=== PATIENT | female | born 1975 ===

== ENCOUNTER 2018-08-14 19:57 | Emergency (ER) | payer OTHER ==
[~2018-08-14] VITALS: Ht 167.6 cm; Wt 70.3 kg
[~2018-08-14 19:57] MED LIST: ACIDOPHILUS1 EACH PO; TOPROL XL25 MG; ZANTAC150 MG PO; ZOFRAN8 MG PO
[2018-08-14] MEDS ORDERED: SYNTHROID150 MCG PO (20:09)
[2018-08-14] MEDS ORDERED: CALCIUM500 M1 PO (20:09)
[2018-08-15] MEDS ORDERED: CALCIUM 500 +1 EACH PO (13:02)
[2018-08-15] MEDS ORDERED: BACTRIM DS TAB1 EACH PO (13:07)
[2018-08-15] MEDS ORDERED: KETO10TA2 PO (13:07)
== END 2018-08-15 14:23 ==
LOC: ER 19:57
DX: E83.51 Hypocalcemia (principal)

== ENCOUNTER 2018-09-10 22:33 | Emergency (ER) | payer OTHER ==
[~2018-09-10] VITALS: Ht 167.6 cm; Wt 70.3 kg
[~2018-09-10 22:33] MED LIST changes: +BACTRIM DS TAB1 EACH PO; +CALCIUM 500 +1 EACH PO; +CALCIUM500 M1 PO; +KETO10TA2 PO; +SYNTHROID150 MCG PO
[2018-09-11] MEDS ORDERED: TOPROL XL25 MG PO (08:26)
== END 2018-09-11 08:37 | disposition home or self-care (01) ==
LOC: ER 22:33
DX: R07.89 Other chest pain (principal); I10 Essential (primary) hypertension

== ENCOUNTER 2019-03-10 14:43 | Emergency (ER) | payer OTHER ==
[~2019-03-10] VITALS: Ht 167.6 cm; Wt 71.2 kg
[~2019-03-10 14:43] MED LIST changes: +TOPROL XL25 MG PO
[2019-03-10] MEDS ORDERED: PEPCID20 MG (15:40)
== END 2019-03-10 22:22 | disposition home or self-care (01) ==
LOC: ER 14:43
DX: K29.70 Gastritis, unspecified, without bleeding (principal); K59.09 Other constipation

== ENCOUNTER 2019-10-17 19:26 | Emergency (ER) | payer OTHER ==
[~2019-10-17] VITALS: Ht 167.6 cm; Wt 74.8 kg
[~2019-10-17 19:26] MED LIST changes: +PEPCID20 MG
== END 2019-10-17 22:41 | disposition home or self-care (01) ==
LOC: ER 19:26 → CPU-OBS 21:09 → ER 21:09
DX: R07.89 Other chest pain (principal); I48.91 Unspecified atrial fibrillation; E03.8 Other specified hypothyroidism
CPT/HCPCS: G0378; G0379; 93005